=== PATIENT | male | born 1930 | race Caucasian/White ===

== ENCOUNTER 2016-06-15 18:25 | Observation (INO) | payer BC, MEDICARE ==
[~2016-06-15] VITALS: Ht 182.9 cm; Wt 77.8 kg
[2016-06-15 18:30] VITALS: BP 141/88; PULSE 74; RESP 16; TEMP 98.4; O2SAT 98
[2016-06-15] MEDS ORDERED: VITA100021 SL (18:41)
[2016-06-15] MEDS ORDERED: LEVO50TA4 PO (18:41)
[2016-06-15] MEDS ORDERED: METO25TA3 PO (18:41)
[2016-06-15] MEDS ORDERED: FINA5TAB2 PO (18:41)
[2016-06-15] MEDS ORDERED: AMIO200T PO (18:41)
[2016-06-15] MEDS ORDERED: ASPI81CH CHEW (18:41)
[2016-06-15] MEDS ORDERED: POTA-243 PO (18:41)
[2016-06-15] MEDS ORDERED: WARF-18 PO (18:41)
[2016-06-15] MEDS ORDERED: MULT1TAB84 PO (18:41)
--- NOTE | 2016-06-15 19:22 | PD ---
HPI Chief Complaint: Chest Pain Time Seen by Provider: 19:04 Travel History International Travel<30 days: No Contact w/Intl Traveler<30days: No Traveled to known affect area: No History of Present Illness HPI 85-year-old male presents to the emergency department by private transportation in the care of his spouse for evaluation of left-sided pleuritic chest pain that worsens when he takes a deep breath. Symptoms have been present for approximately one week. Patient states symptoms have worsened in the past 3 days. Patient reports she is visiting from [place] and arrived here on Wednesday. Patient reports he underwent a eyelid procedure on Wednesday one week ago and had been off of his Coumadin until and was only taking aspirin. Patient is not able to quantitate his pain but just says it hurts when he takes a deep breath. No prior visits to this facility or local area. Patient does have history of CAD HTN atrial fibrillation pacemaker DVT CVA hypothyroidism and cholecystectomy. PFSH Past Medical History Narrative Medical CAD HTN atrial fibrillation pacemaker DVT CVA hypothyroidism bilateral knee surgery cholecystectomy; no tobacco use; nursing notes reviewed Heart Rhythm Problems: Yes Cardiac Catheterization: Yes (pacemaker) Cardiovascular Problems: Yes (PACEMAKER) Cerebrovascular Accident: Yes Deep Vein Thrombosis: Yes Hypertension: Yes Kidney Stones: Yes Thyroid Disease: Yes Influenza Vaccination: Yes Past Surgical History Cardiac Surgery: Yes (pacemaker) Cholecystectomy: Yes Eye Surgery: Yes (cataract) Pacemaker: Yes Other Surgery: Yes Social History Alcohol Use: No Tobacco Use: No Substance Use: No Allergies-Medications (Allergen,Severity, Reaction): Coded Allergies: Augmentin (Verified Adverse Reaction, Intermediate, Diarrhea, 06/15/16) "DIARRHEA FOR 4 DAYS, TORE MY STOMACH UP" Reported Meds & Prescriptions Reported Meds & Active Scripts Active Reported Multivitamin Adults (Multiple Vitamins W/ Minerals) 1 Tab 1 Tab PO DAILY Vitamin B-12 (Cyanocobalamin) 1,000 Mcg Subl 500 Mcg SL DAILY Aspirin 81 Mg Chew 81 Mg CHEW DAILY Warfarin 2.5 Mg Tab 2.5 Mg PO DAILY Klor-Con 10 (Potassium Chloride) 10 Meq Tab 10 Meq PO DAILY Metoprolol Tartrate 25 Mg Tab 12.5 Mg PO BID Levothyroxine (Levothyroxine Sodium) 50 Mcg Tab 50 Mcg PO DAILY Finasteride 5 Mg Tab 5 Mg PO DAILY Do not crush. Amiodarone (Amiodarone HCl) 200 Mg Tab 200 Mg PO DAILY Review of Systems Except as stated in HPI: all other systems reviewed are Neg General / Constitutional: No: Fever, Chills Eyes: No: Visual changes HENT: No: Headaches, Lightheadedness Cardiovascular: Positive: Chest Pain or Discomfort (with deep breath), No: Diaphoresis, Dyspnea on exertion, Edema Respiratory: Positive: Pleuritic Pain, No: Shortness of Breath Gastrointestinal: No: Nausea, Vomiting, Abdominal Pain Musculoskeletal: No: Myalgias, Arthralgias, Edema, Pain Skin: No Rash Neurologic: No: Weakness Psychiatric: No: Anxiety Hematologic/Lymphatic: No: Lymph Node Enlargement Physical Exam Narrative GENERAL: Well-developed well-nourished male in no acute distress no respiratory distress SKIN: Warm and dry. HEAD: Normocephalic. EYES: No scleral icterus. No injection or drainage. NECK: Supple, trachea midline. No JVD or lymphadenopathy. CARDIOVASCULAR: Regular rate and rhythm without murmurs, gallops, or rubs. RESPIRATORY: Breath sounds equal bilaterally. No accessory muscle use. GASTROINTESTINAL: Abdomen soft, non-tender, nondistended. MUSCULOSKELETAL: No cyanosis, or edema. BACK: Nontender without obvious deformity. No CVA tenderness. Data Data Last Documented VS Vital Signs Date Time Temp Pulse Resp B/P Pulse Ox O2 Delivery O2 Flow Rate FiO2 06/15/16 22:37 115/73 06/15/16 22:31 75 20 97 Room Air 06/15/16 18:30 98.4 Orders Electrocardiogram (06/15/16 18:44) Complete Blood Count With Diff (06/15/16 18:44) Basic Metabolic Panel (Bmp) (06/15/16 18:44) Ckmb (Isoenzyme) Profile (06/15/16 18:44) Troponin I (06/15/16 18:44) Chest, Single Ap (06/15/16 18:44) Iv Access Insert/Monitor (06/15/16 18:44) Ecg Monitoring (06/15/16 18:44) Oxygen Administration (06/15/16 18:44) Oximetry (06/15/16 18:44) Prothrombin Time / Inr (Pt) (06/15/16 18:46) Act Partial Throm Time (Ptt) (06/15/16 18:46) Magnesium (Mg) (06/15/16 18:44) CKMB (06/15/16 18:34) CKMB% (06/15/16 18:34) Ct Pulmonary Angiogram (06/15/16 ) Aspirin Chew (Aspirin Chew) (06/16/16 09:00) Iodixanol 320 Inj (Rad Ct) (Visipaque 32 (06/15/16 21:36) Troponin I (06/15/16 22:09) Ckmb (Isoenzyme) Profile (06/15/16 22:09) Electrocardiogram (06/15/16 ) Nitroglycerin Sl (Nitrostat Sl) (06/15/16 22:15) Aspirin Chew (Aspirin Chew) (06/15/16 22:45) Admit Order (Ed Use Only) (06/15/16 ) ^ Saline Lock (06/15/16 22:43) Resp Oxygen Sancho C Titrat 1-4 L (06/15/16 ) Notify Dr: Other (06/15/16 22:43) Sodium Chloride 0.9% Flush (Ns Flush) (06/16/16 09:00) Sodium Chloride 0.9% Flush (Ns Flush) (06/15/16 22:45) Labs Laboratory Tests Test 06/15/16 18:34 White Blood Count 6.9 TH/MM3 Red Blood Count 4.28 MIL/MM3 Hemoglobin 13.6 GM/DL Hematocrit 42.2 % Mean Corpuscular Volume 98.7 FL Mean Corpuscular Hemoglobin 31.9 PG Mean Corpuscular Hemoglobin 32.3 % Concent Red Cell Distribution Width 14.4 % Platelet Count 119 TH/MM3 Mean Platelet Volume 10.1 FL Neutrophils (%) (Auto) 62.9 % Lymphocytes (%) (Auto) 18.6 % Monocytes (%) (Auto) 11.7 % Eosinophils (%) (Auto) 5.0 % Basophils (%) (Auto) 1.8 % Neutrophils # (Auto) 4.4 TH/MM3 Lymphocytes # (Auto) 1.3 TH/MM3 Monocytes # (Auto) 0.8 TH/MM3 Eosinophils # (Auto) 0.3 TH/MM3 Basophils # (Auto) 0.1 TH/MM3 CBC Comment DIFF FINAL Differential Comment Prothrombin Time 12.9 SEC Prothromb Time International 1.2 RATIO Ratio Activated Partial 29.9 SEC Thromboplast Time Sodium Level 144 MEQ/L Potassium Level 4.5 MEQ/L Chloride Level 106 MEQ/L Carbon Dioxide Level 31.1 MEQ/L Anion Gap 7 MEQ/L Blood Urea Nitrogen 33 MG/DL Creatinine 1.80 MG/DL Estimat Glomerular Filtration 36 ML/MIN Rate Random Glucose 142 MG/DL Calcium Level 8.6 MG/DL Magnesium Level 2.3 MG/DL Total Creatine Kinase 168 U/L Creatine Kinase MB 1.6 NG/ML Troponin I 0.02 NG/ML MDM Medical Decision Making Medical Screen Exam Complete: Yes Emergency Medical Condition: Yes Medical Record Reviewed: Yes Interpretation(s) EKG: Atrial paced rhythm rate 75 LAD right bundle branch block with left anterior fascicular block Q waves septally in V1 V2 age-indeterminate no acute ST elevation or injury pattern change noted Last Impressions Chest X-Ray 06/15/16 1844 Signed Impressions: Service Date/Time: Wednesday, June 15, 2016 19:12 - CONCLUSION: No acute cardiopulmonary disease demonstrated. Aniceto Chatterjee MD CT Angiography 06/15/16 0000 Signed Impressions: Service Date/Time: Wednesday, June 15, 2016 21:01 - CONCLUSION: 1. No pulmonary embolus or other acute cardiopulmonary disease demonstrated. 2. Previous median sternotomy. Pacer present. 3. Mild cardiomegaly, mainly left atrium and left ventricle. 4. Chronic anterior tightness suspected. No acute inflammatory changes are demonstrated. 5. Bilateral renal stones partly seen, those visualized appear to be nonobstructing. Aniceto Chatterjee MD CBC & BMP Diagram 06/15/16 18:34 Troponin I: 0.02, not elevated; CK: 168, not elevated INR: 1.2, subtherapeutic EKG #2 per CBC protocol: Atrial paced rhythm left axis deviation left to right bundle branch block pattern septal Q waves V1 V2 age-indeterminate no acute ST elevation or injury pattern change noted Differential Diagnosis Chest pain, atypical chest pain, ACS, OR, pulmonary embolism, pleurisy, pneumonia, musculoskeletal pain Narrative Course Patient placed on monitoring analyst IV access obtained specimens collected and sent for resulting Lab values found to be in normal range except for renal insufficiency and INR is subtherapeutic at 1.2 CT pulmonary angiogram ordered Patient return from CT discomfort as intensity CT resulted no pulmonary embolism Patient's case discussed with on-call HHH Silvana Brennan for [facility] protocol -- second set of troponin CK EKG of protocol has been ordered here in the emergency department Physician Communication Physician Communication discussed with Dr Up ---will obs admit to [facility] protocol Diagnosis Primary Impression: Chest pain Admitting Information Admitting Physician Requests: Observation Kim Rey MD June 15, 2016 19:22
--- NOTE | 2016-06-15 19:23 | RADHPO ---
EXAM DATE/TIME: 06/15/2016 19:12 [facility] COMPARISON: No previous studies available for comparison. INDICATIONS : Left side chest pain. MEDICAL HISTORY : Hypertension. Deep venous thrombosis. Renal calculi. CVA. Thyroid disease. SURGICAL HISTORY : Pacemaker. Cholecystectomy. Cataract. Total knee replacement, bilateral. Open heart. Cardiac cath. L eft shoulder. ENCOUNTER: Initial ACUITY: 1 day PAIN SCORE: 6/10 LOCATION: Left chest FINDINGS: No infiltrate, effusion or pneumothorax demonstrated. Heart size upper limits of normal. Patient has had previous median sternotomy. There is a cardiac pac er present. Evidence of rotator cuff repair versus bicipital tenodesis on the left. There is left calcific tendin itis/bursitis of the distal cuff. CONCLUSION: No acute cardiopulmonary disease demonstrated. Aniceto Chatterjee MD on June 15, 2016 at 19:20 Board Certified Radiologist. This report was verified electronically.
[2016-06-15 19:32] LABS: AUTOMATED NEUTROPHIL # 4.4 TH/MM3 (1.8-7.7); BASOPHIL # 0.1 TH/MM3 (0-0.2); BASOPHIL % 1.8 % (0.0-2.0); EOSINOPHIL # 0.3 TH/MM3 (0-0.4); HEMATOCRIT 42.2 % (39.0-51.0); LYMPH % 18.6 % (9.0-44.0); LYMPHOCYTE # 1.3 TH/MM3 (1.0-4.8); MEAN CELL VOLUME 98.7 FL (80.0-100.0); MEAN CORPUSCULAR HEMOGLOBIN 31.9 PG (27.0-34.0); MEAN CORPUSCULAR HGB CONC 32.3 % (32.0-36.0); MONO % 11.7 % (0.0-8.0); NEUT % 62.9 % (16.0-70.0); PLATELET COUNT 119 TH/MM3 (150-450); RED BLOOD COUNT 4.28 MIL/MM3 (4.50-5.90); RED CELL DISTRIBUTION WIDTH 14.4 % (11.6-17.2); WHITE BLOOD COUNT 6.9 TH/MM3 (4.0-11.0)
[2016-06-15 19:34] LABS: HEMO FLAGS DIFF FINAL
[2016-06-15 19:40] LABS: CHLORIDE 106 MEQ/L (98-107); POTASSIUM 4.5 MEQ/L (3.5-5.1); SODIUM (NA) 144 MEQ/L (136-145)
[2016-06-15 19:44] LABS: ANION GAP 7 MEQ/L (5-15); APTT (PATIENT) 29.9 SEC (24.3-30.1); BICARBONATE 31.1 MEQ/L (21.0-32.0); BLOOD UREA NITROGEN 33 MG/DL (7-18); INTERNATIONAL NORMALIZED RATIO 1.2 RATIO; MAGNESIUM 2.3 MG/DL (1.5-2.5); PROTHROMBIN TIME - PATIENT 12.9 SEC (9.8-11.6)
[2016-06-15 19:48] LABS: GLOMERULAR FILTRATION RATE 36 ML/MIN (>89)
[2016-06-15 19:51] LABS: CREATINE KINASE 168 U/L (39-308)
[2016-06-15 20:03] LABS: CKMB 1.6 NG/ML (0.5-3.6)
[2016-06-15 20:11] VITALS: BP 151/95; PULSE 75; O2SAT 98
[2016-06-15 21:23] VITALS: BP 153/88; PULSE 75; O2SAT 95
[2016-06-15] MEDS ORDERED: IODIXANOL 320 MG/ML 10 ML VIAL (for Rad CT) IV ONE (21:36)
--- NOTE | 2016-06-15 21:57 | RADHPO ---
EXAM DATE/TIME: 06/15/2016 21:01 [facility] COMPARISON: No previous studies available for comparison. INDICATIONS : Left pleuritic pain for one week. IV CONTRAST: 50 cc Visipaque (iodixanol) IV RADIATION DOSE: 12.87 CTDIvol (mGy) MEDICAL HISTORY : Deep venous thrombosis. Hypertension. Cerebrovascular disease. SURGICAL HISTORY : CABG Pacemaker.Cholecystectomy. ENCOUNTER: Initial ACUITY: 1 week PAIN SCALE: 9/10 LOCATION: Left upper chest TECHNIQUE: Volumetric scanning of the chest was performed using a pulmonary embolism protocol MIP images were re constructed. Using automated exposure control and adjustment of the mA and/or kV according to patien t size, radiation dose was kept as low as reasonably achievable to obtain optimal diagnostic quality images. FINDINGS: There is no pulmonary embolus. No infiltrate, effusion or pneumothorax demonstrated of the lungs. There is mild ibrahim chamber enlargement of the heart. Patient has a pacer. There is been previous media n sternotomy. Coronary artery calcification noted, most conspicuous of the left circumflex and left a nterior descending. There is a small hiatal hernia. Several nonobstructing stones can be seen with both kidneys measuring up to 6 mm. There are scattered calcifications of the visualized pancreas, typical of chronic pancreatitis. CONCLUSION: 1. No pulmonary embolus or other acute cardiopulmonary disease demonstrated. 2. Previous median sternotomy. Pacer present. 3. Mild cardiomegaly, mainly left atrium and left ventricle. 4. Chronic anterior tightness suspected. No acute inflammatory changes are demonstrated. 5. Bilateral renal stones partly seen, those visualized appear to be nonobstructing. Aniceto Chatterjee MD on June 15, 2016 at 21:52 Board Certified Radiologist. This report was verified electronically.
[2016-06-15] MEDS ORDERED: NITROGLYCERIN 0.4 MG SL 25 TABS/BTL SL ONE (22:15)
[2016-06-15 22:31] VITALS: BP 126/81; PULSE 75; RESP 20; O2SAT 97
--- NOTE | 2016-06-15 22:36 | EKG ---
Date Performed: 06/15/2016 Time Performed: 18:24:38 PTAGE: 85 years EKG: Normal Sinus rhythm . Left axis deviation Nonspecific intraventricular conduction delay with left anterior fascicular blo ck Cannot rule out septal infarct - age undetermined Left ventricular hypertrophy Lateral ST-T change s are possibly due to ventricular hypertrophy Abnormal ECG NO PREVIOUS TRACING DOCTOR: Kahlil Chang Interpretating Date/Time 06/15/2016 22:35:37
[2016-06-15 22:37] VITALS: BP 115/73
[2016-06-15] MEDS ORDERED: ASPIRIN 81 MG CHEW TAB CHEW ONE (22:45)
[2016-06-15] MEDS ORDERED: SODIUM CHLORIDE 0.9% FLUSH 10 ML FLUSH IVF PRN (22:45)
[2016-06-15 22:49] LABS: CREATINE KINASE 141 U/L (39-308)
[2016-06-15] MEDS ORDERED: SODIUM CHLORIDE 0.9% FLUSH 10 ML FLUSH IV FLUSH PRN (23:00)
[2016-06-15 23:01] LABS: CKMB 1.3 NG/ML (0.5-3.6)
[2016-06-16] VITALS: BP 139/93; PULSE 75; RESP 18; TEMP 97.3; O2SAT 96
[2016-06-16 01:00] VITALS: O2SAT 93
[2016-06-16 04:00] VITALS: BP 148/100; PULSE 77; RESP 18; TEMP 97.1; O2SAT 98
[2016-06-16 08:00] VITALS: BP 141/83; PULSE 77; RESP 20; TEMP 98.1; O2SAT 96
[2016-06-16] MEDS ORDERED: LEVOTHYROXINE SODIUM 50 MCG TAB PO SCH (09:00)
[2016-06-16] MEDS ORDERED: SODIUM CHLORIDE 0.9% FLUSH 10 ML FLUSH IV FLUSH SCH (09:00)
[2016-06-16] MEDS ORDERED: AMIODARONE 200 MG TAB PO SCH (09:00)
[2016-06-16] MEDS ORDERED: SODIUM CHLORIDE 0.9% FLUSH 10 ML FLUSH SCH (09:00)
[2016-06-16] MEDS ORDERED: CYANOCOBALAMIN 1,000 MCG TAB PO SCH (09:00)
[2016-06-16] MEDS ORDERED: ASPIRIN 81 MG CHEW TAB CHEW SCH (09:00)
[2016-06-16] MEDS ORDERED: FINASTERIDE 5 MG TAB PO SCH (09:00)
[2016-06-16] MEDS ORDERED: MULTIVITAMINS/MINERALS THERAPEUTIC TAB PO SCH (09:00)
--- NOTE | 2016-06-16 09:14 | HHI.HP ---
[facility] Physician Non-Staff Admission Diagnosis chest pain Diagnoses: (1) Atypical chest pain Diagnosis: Principal Chief Complaint: chest pain Travel History International Travel<30 Days: No Contact w/Intl Traveler <30 Da: No Traveled to Known Affected Are: No History of Present Illness 85-year-old male visiting from [place] with history of atrial fibrillation on Coumadin, valve repair, CHF, CVA, hypertension, hypothyroidism, CKD presents with complaint of chest pain. Patient admits to pain over the left side of his anterior chest which started one week ago. He states initially it was not bad and he thought it was due to getting over a cold virus. He states he has had a cough for 3-4 weeks along with nasal congestion. He states he is producing thick, white green sputum. He states he went to an urgent care on 05/27/16 and was prescribed antibiotics which gave him diarrhea for 3-4 days which has since resolved. He then saw his primary care physician who prescribed him a different course of antibiotics. He describes chest pain as pleuritic stating it occurs with deep breaths but also states it occurs with moving in certain positions. He denies any heavy lifting recently. He rates the pain currently as a 5-7/10. He is unsure of nitroglycerin helped in the ED although no relief is documented after administration. He denies any diaphoresis or radiation of pain elsewhere aside from some pain over the left side of the neck but states he may have slept wrong. States he had some numbness in his left hand last night while in bed. States he had fevers a few weeks ago but denies any recent fevers or chills. Denies any associated abdominal pain, nausea, vomiting although states he had a loss of appetite last night. He denies any leg swelling or orthopnea. Review of Systems Except as stated in HPI: all other systems reviewed are Neg Past Family Social History Past Medical History Atrial fibrillation on Coumadin Hypertension CHF CVA Hypothyroidism CKD Kidney stones Past Surgical History Valve repair 2, but the patient is unsure of which valves. Pacemaker placement Cholecystectomy Left knee replacement Arthroscopic right knee surgery Left shoulder surgery Carpal tunnel surgery Hernia surgery Cataract surgery Reported Medications Multivitamin Adults (Multiple Vitamins W/ Minerals) 1 Tab 1 Tab PO DAILY Vitamin B-12 (Cyanocobalamin) 1,000 Mcg Subl 500 Mcg SL DAILY Aspirin 81 Mg Chew 81 Mg CHEW DAILY Warfarin 2.5 Mg Tab 2.5 Mg PO DAILY Klor-Con 10 (Potassium Chloride) 10 Meq Tab 10 Meq PO DAILY Metoprolol Tartrate 25 Mg Tab 12.5 Mg PO BID Levothyroxine (Levothyroxine Sodium) 50 Mcg Tab 50 Mcg PO DAILY Finasteride 5 Mg Tab 5 Mg PO DAILY Do not crush. Amiodarone (Amiodarone HCl) 200 Mg Tab 200 Mg PO DAILY Allergies: Coded Allergies: Augmentin (Verified Adverse Reaction, Intermediate, Diarrhea, 06/15/16) "DIARRHEA FOR 4 DAYS, TORE MY STOMACH UP" Family History Mother: Stroke Father: Lived to age 93; pacemaker Social History Patient denies any history of tobacco use, alcohol use, or illicit drug use. Physical Exam Vital Signs Vital Signs Date Time Temp Pulse Resp B/P Pulse Ox O2 Delivery O2 Flow Rate FiO2 06/16/16 08:00 98.1 77 20 141/83 96 06/16/16 04:00 97.1 77 18 148/100 98 06/16/16 01:00 93 21 06/16/16 00:00 97.3 75 18 139/93 96 06/16/16 00:00 97.3 75 18 139/93 96 06/15/16 22:37 115/73 06/15/16 22:31 75 20 126/81 97 Room Air 06/15/16 21:23 75 153/88 95 Room Air 06/15/16 20:11 75 151/95 98 Room Air 06/15/16 18:30 98.4 74 16 141/88 98 Physical Exam GENERAL: This is a pleasant elderly well-nourished, well-developed patient, in no apparent distress. SKIN: No rashes. Warm and dry. Dried blood lateral to R eye. HEAD: Atraumatic. Normocephalic. EYES: No scleral icterus. No injection or drainage. NECK: Trachea midline. CHEST: Reproducible tenderness over the left anterior chest. CARDIOVASCULAR: Normal rate with irregularly irregular rhythm without murmurs, gallops, or rubs. RESPIRATORY: Decreased breath sounds on the left. No wheezes, rales, or rhonchi. GASTROINTESTINAL: Abdomen soft, nondistended. "Sore" over the left upper quadrant. No guarding. MUSCULOSKELETAL: No lower extremity edema bilaterally. 2+ DP and TP pulses bilaterally. NEUROLOGICAL: Awake and alert. Motor grossly within normal limits. Normal speech. Laboratory Laboratory Tests Test 06/15/16 06/15/16 06/16/16 18:34 22:20 01:30 White Blood Count 6.9 Red Blood Count 4.28 Hemoglobin 13.6 Hematocrit 42.2 Mean Corpuscular Volume 98.7 Mean Corpuscular Hemoglobin 31.9 Mean Corpuscular Hemoglobin 32.3 Concent Red Cell Distribution Width 14.4 Platelet Count 119 Mean Platelet Volume 10.1 Neutrophils (%) (Auto) 62.9 Lymphocytes (%) (Auto) 18.6 Monocytes (%) (Auto) 11.7 Eosinophils (%) (Auto) 5.0 Basophils (%) (Auto) 1.8 Neutrophils # (Auto) 4.4 Lymphocytes # (Auto) 1.3 Monocytes # (Auto) 0.8 Eosinophils # (Auto) 0.3 Basophils # (Auto) 0.1 CBC Comment DIFF FINAL Differential Comment Prothrombin Time 12.9 Prothromb Time International 1.2 Ratio Activated Partial 29.9 Thromboplast Time Sodium Level 144 Potassium Level 4.5 Chloride Level 106 Carbon Dioxide Level 31.1 Anion Gap 7 Blood Urea Nitrogen 33 Creatinine 1.80 Estimat Glomerular Filtration 36 Rate Random Glucose 142 Calcium Level 8.6 Magnesium Level 2.3 Total Creatine Kinase 168 141 143 Creatine Kinase MB 1.6 1.3 Troponin I 0.02 0.02 0.02 Result Diagram: 06/15/16183306/15/16 183 Imaging Last Impressions Chest X-Ray 06/15/16 1844 Signed Impressions: Service Date/Time: Wednesday, June 15, 2016 19:12 - CONCLUSION: No acute cardiopulmonary disease demonstrated. Aniceto Chatterjee MD CT Angiography 06/15/16 0000 Signed Impressions: Service Date/Time: Wednesday, June 15, 2016 21:01 - CONCLUSION: 1. No pulmonary embolus or other acute cardiopulmonary disease demonstrated. 2. Previous median sternotomy. Pacer present. 3. Mild cardiomegaly, mainly left atrium and left ventricle. 4. Chronic anterior tightness suspected. No acute inflammatory changes are demonstrated. 5. Bilateral renal stones partly seen, those visualized appear to be nonobstructing. Aniceto Chatterjee MD Assessment and Plan Problem List: (1) Atypical chest pain ICD Code: R07.89 Status: Acute Assessment and Plan 85-year-old male with: Atypical chest pain: Pleuritic left chest with some reproducible tenderness as well. Patient has had a respiratory infection for the past few weeks although has been on 2 courses of antibiotics with sufficient duration. EKGs 3 with atrial pacing, left axis deviation, and lateral ST-T changes. No prior EKGs for comparison. Troponin 3 of 0.02. Chest x-ray with sternotomy wires present and pacemaker but no acute disease. CTA of the chest is negative for PE. Risk factors include hypertension, age. Possible CHF history. -Patient received 162 mg of aspirin last night and this morning -Nitro/Morton/morphine prn chest pain -Lexiscan ordered. NPO since 1630 yesterday. Atrial fibrillation: Chronic, rate controlled. Patient's INR is subtherapeutic although his Coumadin had been held due to recent right eye surgery and he had resumed it on 06/11. -Continue amiodarone and metoprolol. I was later informed that patient's presales engineer stopped his amiodarone after pacemaker check. -Continue warfarin. Monitor INR. Hypertension: -Continue home medication CKD: BUN/Cr 33/1.80, stage III. Patient states he is borderline stage IV. -Monitor renal function. -Start low rate IVF as patient is NPO GI prophylaxis: Pepcid daily. DVT prevention: On warfarin Nuclear stress test with small size, moderate severity inferior perfusion abnormality without evidence of ischemia. Low risk. Discharge disposition: Home in fair to good condition. Diet: Heart healthy, Coumadin diet. Activity: no strenuous activity; otherwise regular. Medications: Resume home meds. Follow up: PCP, presales engineer 1 week. Patient states he is visiting here for one month but will return to see his doctors in [place] when he goes back. He has a prescription for an INR check. He is advised to get his INR rechecked this week on or Wednesday as his medication may need to be adjusted; he states it will be sent to his PCP. Written by Joelle Farmer PA-C acting as scribe for Dr. Allen on 06/16/16 at ~ 0900. This note was transcribed by osiris WRIGHT I, Dr. Param Allen personally performed the history, physical exam, and medical decision making; and confirmed the accuracy of the information in the transcribed note. Authenticated by Dr. Param Allen on 06/16/16 at 09:00. Code Status Full code Discussed Condition With patient Joelle Farmer June 16, 2016 09:14 Param Allen MD June 16, 2016 14:32
[2016-06-16] MEDS ORDERED: ACETAMINOPHEN 500 MG CPLT PO PRN (09:45)
[2016-06-16] MEDS ORDERED: ACETAMINOPHEN/HYDROcodone 325 MG/7.5 MG TAB PO PRN (09:45)
[2016-06-16] MEDS ORDERED: NITROGLYCERIN 0.4 MG SL 25 TABS/BTL SL PRN (09:45)
[2016-06-16] MEDS ORDERED: MORPHINE SULFATE 4 MG/ML INJ IV PRN (09:45)
[2016-06-16] MEDS ORDERED: METOPROLOL TARTRATE 25 MG TAB PO SCH (10:00)
[2016-06-16] MEDS ORDERED: FAMOTIDINE 20 MG TAB PO SCH (10:00)
[2016-06-16 10:02] VITALS: O2SAT 96
[2016-06-16] MEDS ORDERED: SODIUM CHLOR 0.9% 1000 ML INJ 1,000 ML IV SCH (10:45)
[2016-06-16] MEDS ORDERED: REGADENOSON INJ 0.4 MG/5 ML SYR IV ONE (12:27)
[2016-06-16 13:00] VITALS: BP 129/82; PULSE 73; RESP 18; TEMP 97.5; O2SAT 95
--- NOTE | 2016-06-16 13:07 | EKG ---
Date Performed: 06/16/2016 Time Performed: 01:01:10 PTAGE: 85 years EKG: Possible atrial pacing Left axis deviation Nonspecific intraventricular conduction delay Le ft anterior fascicular block Cannot rule out septal infarct - age undetermined Possible left ventricu lar hypertrophy Lateral ST-T changes are nonspecific Abnormal ECG PREVIOUS TRACING : 06/15/2016 18.24 No change from previous tracing noted. DOCTOR: Kahlil Chang Interpretating Date/Time 06/16/2016 13:06:24
--- NOTE | 2016-06-16 13:10 | EKG ---
Date Performed: 06/15/2016 Time Performed: 22:12:48 PTAGE: 85 years EKG: Possible atrial pacing. Left axis deviation Nonspecific intraventricular conduction delay. Left anterior fascicular block Cannot rule out septal infarct - age undetermined Possible left ventri cular hypertrophy Lateral ST-T changes are nonspecific Abnormal ECG PREVIOUS TRACING : 06/15/2016 18.24 No change from previous tracing noted. DOCTOR: Kahlil Chang Interpretating Date/Time 06/16/2016 13:09:04
--- NOTE | 2016-06-16 14:21 | RADHPO ---
EXAM DATE/TIME: 06/16/2016 12:21 [facility] COMPARISON: No previous studies available for comparison. INDICATIONS : Left sided chest pain for one week. Abnormal EKG. Unable to walk on treadmill. DOSE: 25.5 mCi Tc99m Myoview at stress. 8.7 mCi Tc99m Myoview at rest. 0.4 mg Lexiscan STRESS SYMPTOMS: Dizziness. EJECTION FRACTION: 60% MEDICAL HISTORY : Congestive hearrt failure. Hypertension. Renal failure, chronic. SURGICAL HISTORY : Cholecystectomy. Pacemaker. Umbilical hernia repair. ENCOUNTER: Initial ACUITY: 1 week PAIN SCALE: 7/10 LOCATION: Left chest TECHNIQUE: The patient underwent pharmacologic stress with infusion of prescribed dose. Continuous ECG tracing was monitored during stress. Gated SPECT imaging was performed after stress and conventional SPECT i maging was performed at rest. The examination was performed on a SPECT/CT scanner, both attenuation and non-corrected datasets were reviewed. FINDINGS: DISTRIBUTION: The maximum perfused segment at stress is in the septal wall. PERFUSION STUDY: There is a small area of mildly to moderately diminished relative perfusion involving the inferior wa ll. There is no definite redistribution. GATED STUDY: There is intact wall motion and thickening without hypokinetic or dyskinetic segments. CONCLUSION: Small size, moderate severity inferior perfusion abnormality without evidence of ischemia RISK CATEGORY: Low (<1% Annual Mortality Rate) Aniceto Mayers MD on June 16, 2016 at 14:16 Board Certified Radiologist. This report was verified electronically.
--- NOTE | 2016-06-16 14:42 | TR ---
Date Performed: 06/16/2016 Time Performed: 12:42:21 DOCTOR: Keith Moscoso DRUG LIST: CLINICAL HISTORY: CHEST PAIN WITH ABNORMAL EKG REASON FOR TEST: Chest pain REASON FOR ENDING: OBSERVATION: CONCLUSION: IVCD noted through test with no ST changes. Nuclear imaging is pending COMMENTS:
--- NOTE | 2016-06-16 14:56 | HHI.DCPOC ---
Discharge Care Plan Diagnosis: (1) Atypical chest pain Your Health Problems Are: Chest Pain Goals to Promote Your Health * To prevent worsening of your condition and complications * To maintain your health at the optimal level Directions to Meet Your Goals Take your medications as prescribed Follow your dietary instruction Follow activity as directed Keep your appointments as scheduled Take your immunizations and boosters as scheduled If your symptoms worsen call your PCP, if no PCP go to Urgent Care Center or Emergency Room Smoking is Dangerous to Your Health. Avoid second hand smoke Call the 24-hour hour crisis hotline for domestic abuse at Joelle Farmer June 16, 2016 14:56
[2016-06-16] MEDS ORDERED: WARFARIN SOD 2.5 MG TAB PO SCH (16:00)
== END 2016-06-16 16:30 | disposition home or self-care (01) ==
LOC: PHED 18:25 → PHEDA 22:44 → PH3A 06-16 00:14
PROVIDERS: ADMIT Hospitalist; ATTEND Hospitalist
DX: R07.89 Other chest pain (principal); I45.10 Unspecified right bundle-branch block; I13.0 Hypertensive heart and chronic kidney disease with heart failure and stage 1 through stage 4 chronic kidney disease, or unspecified chronic kidney disease; I50.9 Heart failure, unspecified; N18.3 Chronic kidney disease, stage 3 (moderate); I25.10 Atherosclerotic heart disease of native coronary artery without angina pectoris; I48.2 Chronic atrial fibrillation; E03.9 Hypothyroidism, unspecified; N20.0 Calculus of kidney; Z79.01 Long term (current) use of anticoagulants; Z86.73 Personal history of transient ischemic attack (TIA), and cerebral infarction without residual deficits; Z95.0 Presence of cardiac pacemaker; Z96.652 Presence of left artificial knee joint
CPT/HCPCS: 71010; 71275; 78452; 80048; 82550; 82552; 83735; 84484; 85025; 85610; 85730; 93005; 93017; 99285; A9502; G0378; J2785; J7030; Q9967

== ENCOUNTER → 2016-06-19 | Outpatient (CLI) | payer MEDICARE ==
[~2016-06-19] MED LIST: ASPI81CH CHEW; FINA5TAB2 PO; LEVO50TA4 PO; METO25TA3 PO; MULT1TAB84 PO; POTA-243 PO; VITA100021 SL; WARF-18 PO
[2016-06-19 09:46] LABS: INTERNATIONAL NORMALIZED RATIO 1.2 RATIO; PROTHROMBIN TIME - PATIENT 13.8 SEC (9.8-11.6)
== END ==
LOC: PLAB 08:40
DX: I05.9 Rheumatic mitral valve disease, unspecified (principal)
CPT/HCPCS: 36415; 85610

== ENCOUNTER → 2016-06-22 | Outpatient (CLI) | payer MEDICARE ==
[2016-06-22 09:22] LABS: INTERNATIONAL NORMALIZED RATIO 1.6 RATIO; PROTHROMBIN TIME - PATIENT 17.9 SEC (9.8-11.6)
== END ==
LOC: PLAB 08:12
DX: I05.9 Rheumatic mitral valve disease, unspecified (principal)
CPT/HCPCS: 36415; 85610

== ENCOUNTER → 2016-06-29 | Outpatient (CLI) | payer MEDICARE ==
[2016-06-29 08:51] LABS: INTERNATIONAL NORMALIZED RATIO 2.4 RATIO; PROTHROMBIN TIME - PATIENT 27.1 SEC (9.8-11.6)
== END ==
LOC: PLAB 07:59
DX: I05.9 Rheumatic mitral valve disease, unspecified (principal)
CPT/HCPCS: 36415; 85610

== ENCOUNTER → 2016-07-06 | Outpatient (CLI) | payer MEDICARE ==
[2016-07-06 10:30] LABS: INTERNATIONAL NORMALIZED RATIO 2.4 RATIO; PROTHROMBIN TIME - PATIENT 27.4 SEC (9.8-11.6)
== END ==
LOC: PLAB 09:13
DX: I05.9 Rheumatic mitral valve disease, unspecified (principal)
CPT/HCPCS: 36415; 85610